=== PATIENT | male | born 1970 | race Asian ===

== ENCOUNTER 2020-01-24 14:39 | Inpatient (IN) | payer MEDICAID ==
[~2020-01-24] VITALS: Ht 157.5 cm; Wt 53.5 kg
[2020-01-24] MEDS ORDERED: Omnipaque-300 100ml vial INJ PRN (15:00)
--- NOTE | 2020-01-24 15:03 | Emergency Room Report ---
History of Present Illness General Chief Complaint: Chest Pain Source: Patient Present Illness HPI 49-year-old male presents with epigastric/chest pain burning in nature has been constant since yesterday, no aggravating relieving factors severity is moderate patient attributes it to his longstanding alcohol abuse, no dyspnea on exertion no shortness of breath patient presents from assisted living for continued chest pain, patient denies any family history of ACS patient presents for eval Allergies: Coded Allergies: No Known Allergies (Unverified , 01/24/20) COVID-19 Screening Contact w/high risk pt: No Experienced COVID-19 symptoms?: No COVID-19 Testing performed DIRECTOR DIGITAL ANALYTICS: No Patient History Past Medical History: see triage record Social History: Reports: alcohol use - History of alcohol abuse Reviewed Nursing Documentation: PMH: Agreed; PSxH: Agreed Nursing Documentation-PMH Hx Hypertension: Yes Review of Systems All Other Systems: negative except mentioned in HPI Physical Exam Vital Signs Date Time Temp Pulse Resp B/P (MAP) Pulse Ox O2 Delivery O2 Flow Rate FiO2 01/24/20 14:37 97.9 110 20 136/96 (109) 98 Room Air Sp02 EP Interpretation: reviewed, normal General Appearance: well appearing, no apparent distress, alert Head: normocephalic, atraumatic Eyes: bilateral eye PERRL, bilateral eye EOMI ENT: uvula midline, moist mucus membranes Neck: supple, thyroid normal, supple/symm/no masses Respiratory: lungs clear, no respiratory distress, no retraction, no accessory muscle use Cardiovascular #1: normal peripheral pulses, regular rate, rhythm, no edema, no gallop, no murmur Gastrointestinal: non tender, soft, no guarding, no rebound Musculoskeletal: normal inspection Neurologic: alert, oriented x3 Psychiatric: mood/affect normal Skin: no rash, warm/dry Medical Decision Making Diagnostic Impression: Primary Impression: Chest pain Qualified Codes: R07.9 - Chest pain, unspecified ER Course 49-year-old male presents with epigastric pain, chest pain differential diagnosis includes ACS, pancreatitis, alcohol gastritis Patient given aspirin 325 mg plan for admission CT scan shows no acute intra-abdominal process possible enteritis Patient admitted Dr. Guerra Laboratory Tests Test 01/24/20 15:00 01/24/20 16:35 White Blood Count 7.0 K/UL (4.8-10.8) Red Blood Count 4.74 M/UL (4.70-6.10) Hemoglobin 14.1 G/DL (14.2-18.0) L Hematocrit 43.4 % (42.0-52.0) Mean Corpuscular Volume 92 FL (80-99) Mean Corpuscular Hemoglobin 29.7 PG (27.0-31.0) Mean Corpuscular Hemoglobin Concent 32.4 G/DL (32.0-36.0) Red Cell Distribution Width 14.4 % (11.6-14.8) Platelet Count 124 K/UL (150-450) L Mean Platelet Volume 7.1 FL (6.5-10.1) Neutrophils (%) (Auto) 75.0 % (45.0-75.0) Lymphocytes (%) (Auto) 11.2 % (20.0-45.0) L Monocytes (%) (Auto) 11.2 % (1.0-10.0) H Eosinophils (%) (Auto) 0.8 % (0.0-3.0) Basophils (%) (Auto) 1.9 % (0.0-2.0) Sodium Level 139 MMOL/L (136-145) Potassium Level 3.6 MMOL/L (3.5-5.1) Chloride Level 95 MMOL/L (98-107) L Carbon Dioxide Level 27 MMOL/L (21-32) Anion Gap 17 mmol/L (5-15) H Blood Urea Nitrogen 12 mg/dL (7-18) Creatinine 0.9 MG/DL (0.55-1.30) Estimated Glomerular Filtration Rate > 60 mL/min (>60) Glucose Level 104 MG/DL (74-106) Calcium Level 9.2 MG/DL (8.5-10.1) Total Bilirubin 0.8 MG/DL (0.2-1.0) Aspartate Amino Transferase (AST) 214 U/L (15-37) H Alanine Aminotransferase (ALT) 98 U/L (12-78) H Alkaline Phosphatase 80 U/L (46-116) Troponin I 0.000 ng/mL (0.000-0.056) Total Protein 9.6 G/DL (6.4-8.2) H Albumin 4.8 G/DL (3.4-5.0) Globulin 4.8 g/dL Albumin/Globulin Ratio 1.0 (1.0-2.7) Lipase 125 U/L (73-393) Microbiology Date/Time Source Procedure Growth Status 01/24/20 15:00 Nasopharynx SARS-CoV-2 RdRp Gene Assay - Final Complete EKG Diagnostic Results EKG Time: 15:03 EP Interpretation: NSR, rate 81, QTc 462, no acute ST elevations, normal axis Rhythm Strip Diag. Results Rhythm Strip Time: 15:37 EP Interpretation: yes Rate: 80 Rhythm: NSR, no PVC's, no ectopy Chest X-Ray Diagnostic Results Chest X-Ray Diagnostic Results : Chest X-Ray Ordered: Yes # of Views/Limited/Complete: 1 View Indication: Chest Pain EP Interpretation: Yes Interpretation: no consolidation, no effusion, no pneumothorax, no acute cardiopulmonary disease Impression: No acute disease Electronically Signed by: Edy Hardy MD CT/MRI/US Diagnostic Results CT/MRI/US Diagnostic Results : Impression Procedure: CT Abdomen Pelvis w/Contrast EXAM: CT Abdomen and Pelvis With Intravenous Contrast CLINICAL HISTORY: PAIN TECHNIQUE: Axial computed tomography images of the abdomen and pelvis with intravenous contrast. CTDI is 3 mGy and DLP is 164 mGy-cm. One or more of the following dose reduction techniques were used: automated exposure control, adjustment of the mA and/or kV according to patient size, use of iterative reconstruction technique. COMPARISON: No relevant prior studies available. FINDINGS: Limitations: Limited due to motion. Lung bases: Unremarkable. ABDOMEN: Liver: Hepatic steatosis. Gallbladder and bile ducts: Cholelithiasis. No pericholecystic stranding. Pancreas: Unremarkable. Spleen: Unremarkable. Adrenals: Unremarkable. Kidneys and ureters: Unremarkable. No hydronephrosis. Stomach and bowel: Mildly thickened bowel which may be underdistention versus enteritis/colitis. No bowel obstruction or diverticulitis. PELVIS: Appendix: No findings to suggest acute appendicitis. Bladder: Unremarkable. Reproductive: Unremarkable as visualized. ABDOMEN and PELVIS: Intraperitoneal space: No free air. Bones/joints: No acute fracture. Soft tissues: Unremarkable. Vasculature: Unremarkable. Lymph nodes: Unremarkable. IMPRESSION: 1. Mildly thickened bowel which may be underdistention versus enteritis/colitis. No bowel obstruction or diverticulitis. 2. Cholelithiasis. No pericholecystic stranding. Dictated By: Leo Brito MD Electronically Signed By: Leo Brito MD Signed Date/Time 01/24/20 5970 CC: Edy Hardy MD Last Vital Signs Date Time Temp Pulse Resp B/P (MAP) Pulse Ox O2 Delivery O2 Flow Rate FiO2 01/24/20 14:46 98.8 110 20 134/86 (102) 98 Room Air Disposition: ADMITTED INPATIENT Condition: Stable Edy Hardy MD Jan 24, 2020 15:03
--- NOTE | 2020-01-24 15:04 | NUR ---
ED Nurse Note: Pt came from board and care for CP since 3 hours ago L chest. Pt denies nausea and V, dizziness. Pt is alert and ox4, ambulatory. Pt set up on monitor. Blood labs sent. JAMIL has seen patient. IV present from ambulance.
[2020-01-24 15:07] VITALS: BP 132/83
--- NOTE | 2020-01-24 15:15 | NUR ---
ED Nurse Note: Cyracom used with Dr Hardy, RN and patient. Dr Hardy given phone, hung up before RN was able to obtain cryacom user ID.
--- NOTE | 2020-01-24 15:45 | NUR ---
ED Nurse Note: ERMD notified that pt vomited 30 cc and HR went up to 125.
--- NOTE | 2020-01-24 16:03 | Diagnostic Imaging Report ---
Indication: Reason For Exam: CP Technique: Single AP view of the chest. Comparison: None. Findings: The cardiomediastinal silhouette is within normal limits. No airspace consolidation. No pneumothorax or pleural effusion. No acute osseous abnormality. IMPRESSION: No evidence of acute cardiopulmonary process
[2020-01-24 16:24] LABS: BASOPHILS % (AUTO) 1.9 % (0.0-2.0); EOSINOPHILS % (AUTO) 0.8 % (0.0-3.0); HEMATOCRIT 43.4 % (42.0-52.0); HEMOGLOBIN 14.1 G/DL (14.2-18.0); LYMPHOCYTES % (AUTO) 11.2 % (20.0-45.0); MEAN CORPUSCULAR VOLUME 92 FL (80-99); MONOCYTES % (AUTO) 11.2 % (1.0-10.0); PLATELET COUNT 124 K/UL (150-450); RED BLOOD COUNT 4.74 M/UL (4.70-6.10); RED CELL DISTRIBUTION WIDTH 14.4 % (11.6-14.8)
[2020-01-24 17:08] LABS: ANION GAP 17 mmol/L (5-15); BLOOD UREA NITROGEN 12 mg/dL (7-18); CALCIUM 9.2 MG/DL (8.5-10.1); CARBON DIOXIDE 27 MMOL/L (21-32); CHLORIDE 95 MMOL/L (98-107); CREATININE 0.9 MG/DL (0.55-1.30); POTASSIUM 3.6 MMOL/L (3.5-5.1); SODIUM 139 MMOL/L (136-145)
[2020-01-24 17:12] LABS: ALANINE AMINOTRANSFERASE 98 U/L (12-78); ALBUMIN 4.8 G/DL (3.4-5.0); ALKALINE PHOSPHATASE 80 U/L (46-116); ASPARTATE AMINO TRANSFERASE 214 U/L (15-37); BILIRUBIN,TOTAL 0.8 MG/DL (0.2-1.0)
[2020-01-24 17:13] VITALS: BP 128/80
--- NOTE | 2020-01-24 17:57 | Diagnostic Imaging Report ---
EXAM: CT Abdomen and Pelvis With Intravenous Contrast CLINICAL HISTORY: PAIN TECHNIQUE: Axial computed tomography images of the abdomen and pelvis with intravenous contrast. CTDI is 3 mGy and DLP is 164 mGy-cm. One or more of the following dose reduction techniques were used: automated exposure control, adjustment of the mA and/or kV according to patient size, use of iterative reconstruction technique. COMPARISON: No relevant prior studies available. FINDINGS: Limitations: Limited due to motion. Lung bases: Unremarkable. ABDOMEN: Liver: Hepatic steatosis. Gallbladder and bile ducts: Cholelithiasis. No pericholecystic stranding. Pancreas: Unremarkable. Spleen: Unremarkable. Adrenals: Unremarkable. Kidneys and ureters: Unremarkable. No hydronephrosis. Stomach and bowel: Mildly thickened bowel which may be underdistention versus enteritis/colitis. No bowel obstruction or diverticulitis. PELVIS: Appendix: No findings to suggest acute appendicitis. Bladder: Unremarkable. Reproductive: Unremarkable as visualized. ABDOMEN and PELVIS: Intraperitoneal space: No free air. Bones/joints: No acute fracture. Soft tissues: Unremarkable. Vasculature: Unremarkable. Lymph nodes: Unremarkable. IMPRESSION: 1. Mildly thickened bowel which may be underdistention versus enteritis/colitis. No bowel obstruction or diverticulitis. 2. Cholelithiasis. No pericholecystic stranding.
--- NOTE | 2020-01-24 18:11 | NUR ---
ED Nurse Note: Report given to Keshia BURGER.
--- NOTE | 2020-01-24 18:30 | NUR ---
ED Nurse Note: pt taken up to room 212 accompanied by 2 RN via gursae with classroom monitor in stable condition. Belonging list signed off.
--- NOTE | 2020-01-24 18:38 | NUR ---
NURSE NOTES: pt admitted to unit from ED, in stable condition. V/s bp142/100, HR68, T100.9, o2 in room air 96 R18, no pain at this moment. pt on hoist mechanic no signs of cardiac or respiratory distress. Call light at bedside. Bed locked and in lowest position. Urinal at bedside. Pt skin is intact.
--- NOTE | 2020-01-24 19:05 | NUR ---
HAND-OFF: Report given to Ryan/RN, endorsed plan of care, and latest vital signs pt is running a fever 100.9 and BP142/100. IV site patent.
--- NOTE | 2020-01-24 19:25 | NUR ---
NURSE NOTES: Patient received from Keshia BURGER. Patient in stable condition. Alert and oriented x4. On room air saturating well. Iv site patent and intact on Left hand 20G saline locked. Primary MD notified of temp 100.9 and for admission orders. Awaiting call back. Fall precautions in place. Patient wearing yellow gown and yellow socks. Call light within reach. Bed in lowest position and locked. Will continue plan of care.
--- NOTE | 2020-01-24 19:44 | NUR ---
NURSE NOTES: Dr. Banks called back and referred Dr. Banks for admission orders. Dr. Banks notified and called. Awaiting call back.
[2020-01-24 20:00] VITALS: BP 140/97
--- NOTE | 2020-01-24 20:36 | NUR ---
Dr. Banks called back and gave orders. Orders were verified and carried out and acknowledged.
[2020-01-24] MEDS ORDERED: Albuterol/Ipratropium 3ml neb HHN PRN (20:45)
[2020-01-24] MEDS ORDERED: Enalaprilat 2.5mg/2ml Inj IV PRN (20:45)
[2020-01-24] MEDS ORDERED: Nitroglycerin Subl 0.4mg tab SL PRN (20:45)
[2020-01-24] MEDS ORDERED: dilTIAZem HCl 25mg/5ml Inj IV PRN (20:45)
[2020-01-24] MEDS ORDERED: Miralax 17gm pkt ORAL PRN (20:45)
[2020-01-24] MEDS: Heparin 5000 units/ml inj SUBQ SCH (20:48)
[2020-01-25] VITALS: BP 141/98
[2020-01-25 04:00] VITALS: BP 133/94
[2020-01-25 06:37] LABS: BASOPHILS % (AUTO) 1.5 % (0.0-2.0); EOSINOPHILS % (AUTO) 9.1 % (0.0-3.0); HEMATOCRIT 45.3 % (42.0-52.0); HEMOGLOBIN 14.8 G/DL (14.2-18.0); LYMPHOCYTES % (AUTO) 15.9 % (20.0-45.0); MEAN CORPUSCULAR VOLUME 92 FL (80-99); MONOCYTES % (AUTO) 14.5 % (1.0-10.0); NEUTROPHILS % (AUTO) 58.9 % (45.0-75.0); PLATELET COUNT 118 K/UL (150-450); RED BLOOD COUNT 4.95 M/UL (4.70-6.10); RED CELL DISTRIBUTION WIDTH 13.4 % (11.6-14.8); WHITE BLOOD COUNT 5.8 K/UL (4.8-10.8)
--- NOTE | 2020-01-25 07:14 | NUR ---
HAND-OFF: Report given to Tara BURGER. Patient in stable condition. Endorsed plan of care.
--- NOTE | 2020-01-25 07:24 | NUR ---
NURSE NOTES: Received pt from JENNYFER Davis. Pt is ambulatory. AO x 4. No c/o of pain/distress at this moment. IV on L hand 20g noted, with SL. Side rails x 2. Bed in the lowest and locked. Call light within reach. Will continue to monitor
[2020-01-25 07:30] LABS: CHOLESTEROL 201 MG/DL (< 200); HDL CHOLESTEROL 121 MG/DL (40-60); TRIGLYCERIDES 56 MG/DL (30-150)
[2020-01-25] MEDS: Heparin 5000 units/ml inj SUBQ SCH (07:50)
[2020-01-25 08:00] VITALS: BP 112/86
[2020-01-25] MEDS ORDERED: Aspirin Baby 81mg ORAL SCH (09:00)
--- NOTE | 2020-01-25 09:16 | NUR ---
CASE MANAGEMENT:REVIEW 49 YR OLD MALE BIBA FROM [facility] CC: CHEST PAIN. EMESIS IN ER SI: CHEST PAIN 97.9 125 20 136/96 98% ON RA AST+214 TROPONIN(-) X2 IS:ASA PO IV ZOFRAN CT ABD/PELVIS COVID SWAB CHEST XRAY : TO TELEMETRY DCP; FROM [facility] IS: ASA PO QD HEPARIN SQ Q12
--- NOTE | 2020-01-25 09:43 | NUR ---
INSURANCE CLINICALS FAXED TO [facility] F: [phone] Addendum: 01/25/20 at 1044 by HARVINDER HAWKINS LVN LVN REF # [id number]
--- NOTE | 2020-01-25 11:20 | NUR ---
FLOOR COVERING PRINTER ASSISTANT NOTE SW met w/ pt to evaluate home safety. Pt is Japanese and speaks Swedish. The Swedish diplomatic interpreter Anna #[id number] assisted w/ interpretation. Pt presents as A&O 3-4x and pleasant. Pt reports he has been staying at [facility] [address] [place] [address] for 2 months. Pt has hx of alcohol abuse. PT reports having hx of mental health issue. Pt did not share diagnosis, stating that "I had a problem but it is all gone. I am good now" SW observed pt walking w/o DMEs. Pt reports he is ambulatory and independent w/ ADLs and IADLs. Pt plans to return to [facility] upon DC. Pt did not share any concern/needs. This SW believes pt may be safe to return to his current facility. Emergency contact listed: Keyanna Villanueva (mother) [phone] [employer] Childcare Attendant [phone] ( Per pt, current CM is Chuck Rodrigez)
[2020-01-25 12:00] VITALS: BP 117/81
--- NOTE | 2020-01-25 13:25 | History and Physical ---
History of Present Illness General Date patient seen: Jan 25, 2020 Reason for Hospitalization: Chest Pain Present Illness HPI 49-year-old male with hx of HTN, ETOH abuseand psychosis, presented from an assisted living with epigastric/chest pain burning in nature has been constant since yesterday, no dyspnea on exertion no shortness of breath patient. Allergies: Coded Allergies: No Known Allergies (Unverified , 01/24/20) COVID-19 Screening Contact w/high risk pt: No Experienced COVID-19 symptoms?: No Medication History Unable to Obtain Active Prescriptions or Reported Meds Patient History Healthcare decision maker Resuscitation status Advanced Directive on File Past Medical/Surgical History Past Medical/Surgical History: (1) ETOH abuse (2) History of hypertension (3) Psychiatric disorder Review of Systems All Other Systems: negative except mentioned in HPI Physical Exam General Appearance: thin Lines, tubes and drains: peripheral HEENT: atraumatic, anicteric, mucous membranes moist, PERRL Neck: non-tender, supple, normal inspection Respiratory/Chest: chest wall non-tender, lungs clear, normal breath sounds, no respiratory distress, no accessory muscle use, respiratory distress Cardiovascular/Chest: regular rhythm, regularly irregular Abdomen: normal bowel sounds, non tender, soft, no organomegaly, no mass Extremities: non-tender Skin Exam: normal pigmentation, warm/dry Last 24 Hour Vital Signs Date Time Temp Pulse Resp B/P (MAP) Pulse Ox O2 Delivery O2 Flow Rate FiO2 01/25/20 12:00 99.5 70 21 117/81 (93) 98 01/25/20 12:00 80 01/25/20 08:15 Room Air 01/25/20 08:00 98.1 94 18 112/86 (95) 97 01/25/20 08:00 79 01/25/20 06:50 89 18 97 Room Air 21 01/25/20 04:00 63 01/25/20 04:00 98.2 66 18 133/94 (107) 98 01/25/20 00:00 69 01/25/20 00:00 96.8 70 18 141/98 (112) 97 01/24/20 21:00 Room Air 01/24/20 20:55 Room Air 01/24/20 20:00 98.2 69 18 140/97 (111) 98 01/24/20 20:00 66 01/24/20 19:30 66 01/24/20 18:30 98.6 101 18 128/80 98 Room Air 96 01/24/20 17:13 98.8 106 17 128/80 99 Room Air 01/24/20 15:07 98.8 105 19 132/83 98 Room Air 01/24/20 15:07 105 19 Room Air 96 01/24/20 14:46 98.8 110 20 134/86 (102) 98 Room Air 01/24/20 14:37 97.9 110 20 136/96 (109) 98 Room Air Intake and Output 01/24/20 01/25/20 19:00 07:00 Intake Total 0 ml 240 ml Output Total 300 ml Balance 0 ml -60 ml Intake Oral 0 ml 240 ml Output Urine Total 300 ml Laboratory Tests Test 01/24/20 15:00 01/24/20 16:35 01/25/20 05:18 White Blood Count 7.0 K/UL (4.8-10.8) 5.8 K/UL (4.8-10.8) Red Blood Count 4.74 M/UL (4.70-6.10) 4.95 M/UL (4.70-6.10) Hemoglobin 14.1 G/DL (14.2-18.0) L 14.8 G/DL (14.2-18.0) Hematocrit 43.4 % (42.0-52.0) 45.3 % (42.0-52.0) Mean Corpuscular Volume 92 FL (80-99) 92 FL (80-99) Mean Corpuscular Hemoglobin 29.7 PG (27.0-31.0) 29.9 PG (27.0-31.0) Mean Corpuscular Hemoglobin Concent 32.4 G/DL (32.0-36.0) 32.6 G/DL (32.0-36.0) Red Cell Distribution Width 14.4 % (11.6-14.8) 13.4 % (11.6-14.8) Platelet Count 124 K/UL (150-450) L 118 K/UL (150-450) L Mean Platelet Volume 7.1 FL (6.5-10.1) 6.8 FL (6.5-10.1) Neutrophils (%) (Auto) 75.0 % (45.0-75.0) 58.9 % (45.0-75.0) Lymphocytes (%) (Auto) 11.2 % (20.0-45.0) L 15.9 % (20.0-45.0) L Monocytes (%) (Auto) 11.2 % (1.0-10.0) H 14.5 % (1.0-10.0) H Eosinophils (%) (Auto) 0.8 % (0.0-3.0) 9.1 % (0.0-3.0) H Basophils (%) (Auto) 1.9 % (0.0-2.0) 1.5 % (0.0-2.0) Sodium Level 139 MMOL/L (136-145) Potassium Level 3.6 MMOL/L (3.5-5.1) Chloride Level 95 MMOL/L (98-107) L Carbon Dioxide Level 27 MMOL/L (21-32) Anion Gap 17 mmol/L (5-15) H Blood Urea Nitrogen 12 mg/dL (7-18) Creatinine 0.9 MG/DL (0.55-1.30) Estimat Glomerular Filtration Rate > 60 mL/min (>60) Glucose Level 104 MG/DL (74-106) Calcium Level 9.2 MG/DL (8.5-10.1) Total Bilirubin 0.8 MG/DL (0.2-1.0) Aspartate Amino Transf (AST/SGOT) 214 U/L (15-37) H Alanine Aminotransferase (ALT/SGPT) 98 U/L (12-78) H Alkaline Phosphatase 80 U/L (46-116) Troponin I 0.000 ng/mL (0.000-0.056) 0.000 ng/mL (0.000-0.056) Total Protein 9.6 G/DL (6.4-8.2) H Albumin 4.8 G/DL (3.4-5.0) Globulin 4.8 g/dL Albumin/Globulin Ratio 1.0 (1.0-2.7) Lipase 125 U/L (73-393) Prothrombin Time 11.4 SEC (9.30-11.50) Prothromb Time International Ratio 1.0 (0.9-1.1) Activated Partial Thromboplast Time 26 SEC (23-33) C-Reactive Protein, Quantitative < 0.4 mg/dL (0.00-0.90) Triglycerides Level 56 MG/DL (30-150) Cholesterol Level 201 MG/DL (< 200) H LDL Cholesterol 60 mg/dL (<100) HDL Cholesterol 121 MG/DL (40-60) H Cholesterol/HDL Ratio 1.7 (3.3-4.4) L Thyroid Stimulating Hormone (TSH) 0.807 uiU/mL (0.358-3.740) Microbiology Date/Time Source Procedure Growth Status 01/24/20 15:00 Nasopharynx SARS-CoV-2 RdRp Gene Assay - Final Complete 01/24/20 22:00 Rectum Received Height (Feet): 5 Height (Inches): 2.00 Weight (Pounds): 118 Medications Current Medications Medications (Trade) Dose Ordered Sig/Lucrecia Route PRN Reason Start Time Stop Time Status Last Admin Dose Admin Acetaminophen (Tylenol) 650 mg Q4H PRN ORAL FEVER 01/24/20 20:45 02/23/20 20:44 Albuterol/ Ipratropium (Albuterol/ Ipratropium) 3 ml Q4H PRN HHN Shortness of Breath 01/24/20 20:45 01/29/20 20:44 Aspirin (ASA) 162 mg DAILY ORAL 01/25/20 09:00 03/10/20 08:59 01/25/20 09:28 Diltiazem HCl (Cardizem) 10 mg Q1H PRN IV heart rate more than 120, 01/24/20 20:45 02/23/20 20:44 Enalaprilat (Vasotec) 2.5 mg Q6H PRN IV sbp more than 160 01/24/20 20:45 02/23/20 20:44 Heparin Sodium (Porcine) (Heparin 5000 units/ml) 5,000 units EVERY 12 HOURS SUBQ 01/24/20 21:00 03/09/20 20:59 01/24/20 20:48 Iohexol (OMNIPAQUE-300 100ml) 100 ml NOW PRN INJ Radiology Procedure 01/24/20 15:00 01/26/20 14:57 Nitroglycerin (Ntg) 0.4 mg Q5M PRN SL Prn Chest Pain 01/24/20 20:45 02/23/20 20:44 Ondansetron HCl (Zofran) 4 mg Q6H PRN IVP Nausea & Vomiting 01/24/20 20:45 02/23/20 20:44 Polyethylene Glycol (Miralax) 17 gm DAILYPRN PRN ORAL Constipation 01/24/20 20:45 02/23/20 20:44 Temazepam (Restoril) 15 mg HSPRN PRN ORAL Insomnia 01/24/20 20:45 01/31/20 20:44 Assessment/Plan Problem List: (1) History of hypertension ICD Codes: Z86.79 - Personal history of other diseases of the circulatory system SNOMED: 520979675 (2) Psychiatric disorder ICD Codes: F99 - Mental disorder, not otherwise specified SNOMED: 82570679 (3) ETOH abuse ICD Codes: F10.10 - Alcohol abuse, uncomplicated SNOMED: 50692048 Assessment/Plan: troponin negative x 3 echo reviewed symptomatic treatment will benefit from H2 blockers and carafate on Banana bag. Antonio Banks MD Jan 25, 2020 13:25
[2020-01-25] MEDS ORDERED: chlordiazePOXIDE 25mg Cap ORAL PRN (13:30)
[2020-01-25] MEDS ORDERED: CARAFATE1 GM/10 M1 ORAL (13:39)
[2020-01-25] MEDS ORDERED: FAMOTIDINE20 MG ORAL (13:39)
[2020-01-25] MEDS ORDERED: Vitamin B12 1000mcg/ml Inj IM SCH (14:00)
[2020-01-25] MEDS ORDERED: Thiamine HCl 100 MG in D5W 55 ML IVPB SCH (15:00)
--- NOTE | 2020-01-25 16:38 | NUR ---
NURSE NOTES: Patient was discharged to boarding care via taxi in stable condition. Escorted patient to entrance. ID, heart monitor and IV was removed. No s/s of infection on the removal site. Notified [employer] and [facility] care for discharge. Belongings were accounted and given to patient. Discharge instructions and prescribed medications were given to patient.
[2020-01-25] MEDS ORDERED: Sucralfate 1gm tab ORAL SCH (18:00)
--- NOTE | 2020-01-25 20:20 | History & Physical ---
History and Physical History & Physicial Uday Guerra MD Jan 25, 2020 20:20
--- NOTE | 2020-01-25 21:30 | History and Physical Report ---
DATE OF ADMISSION: 01/24/2020 CHIEF COMPLAINT: Chest pain. HISTORY OF PRESENT ILLNESS: This is a 49-year-old gentleman with past medical history significant for alcoholism, psychiatric disorder, hypertension who presented to the emergency department complaining of epigastric/chest discomfort. The patient feels burning sensation nature, started yesterday, no aggravating or relieving factor. No nausea or vomiting. The patient has longstanding alcohol abuse. Denies any dysuria, frequency, hematuria. The patient is residing at the assisted living and was continuously having chest discomfort and subsequently was advised to come to the emergency room. Shortly after initial evaluation in the emergency department, the patient was admitted to the hospital with chest pain, possible acute coronary syndrome. PAST MEDICAL HISTORY/PAST SURGICAL HISTORY: As above history of alcoholism, hypertension, and psychiatric disorder. MEDICATIONS: At home, please refer to medication reconciliation. ALLERGIES: No known drug allergies. SOCIAL HISTORY: The patient history of alcohol abuse. Denies any substance abuse. FAMILY HISTORY: Noncontributory. REVIEW OF SYSTEMS: Mostly as above. PHYSICAL EXAMINATION: VITAL SIGNS: On admission, temperature 97.9, pulse of 110, respirations 20, and blood pressure 136/96. GENERAL: The patient awake and responsive, no acute distress. HEAD AND NECK: Pupils are equal and reactive to light. Extraocular movements intact. Neck was supple. No JVD. LUNGS: Good air entry. No wheezing or rales. HEART: S1, S2. Regular rhythm. No murmur or gallops. ABDOMEN: Soft, nondistended, nontender. Positive bowel sounds. EXTREMITIES: No cyanosis, clubbing, or edema NEUROLOGIC: Cranial nerves II through XII grossly normal. Motor is 5/5 in all extremities. Gait is intact. RECTAL/GENITOURINARY: Refused and deferred. PSYCHIATRIC: Mood and affect is intact. LABORATORY AND DIAGNOSTIC DATA: Laboratory on admission PT of 11, INR 1.0, PTT of 26. Sodium 132, potassium 3.6, chloride 95, bicarbonate 27, BUN 12, creatinine 0.9, GFR greater than 60. AST 214, ALT of 98. First and second troponin 0.00. CRP less than 0.4. Total protein 9.6. Albumin is 4.8. Cholesterol is 201. Lipase is 215. TSH is 0.87. WBC of 7.0, hemoglobin of 14, hematocrit 43, and platelets is 124. The patient had rapid COVID test negative. Chest x-ray no acute cardiopulmonary disease. CT scan and abdomen pelvic mild thickening of bowels which may be under distention versus enteric colitis. No bowel obstruction or diverticulitis, cholelithiasis, no pericolonic stranding. ASSESSMENT: 1. Atypical chest pain. 2. Alcoholism. 3. Hypertension. PLAN: Admit the patient to monitored unit. Serial cardiac enzymes been negative. The patient's status improved, able to tolerate oral intake. The patient denies any pain, nausea or vomiting at this time. The patient's status improved, wants to go home. Consider discharge home today to follow up with the primary doctor within one week. I advised the patient if the pain comes back, please return back to the hospital. The patient was noted to have thrombocytopenia most likely secondary to alcohol abuse. Uday Guerra M.D. DR: Antony JOB#: [id number] CC:
--- NOTE | 2020-01-27 10:10 | Discharge Summary ---
Discharge Summary Discharge Summary _ DATE OF ADMISSION: 01/24/2020 DATE OF DISCHARGE: 01/25/2020 ADMITTING MD: Dr. Uday Guerra DISCHARGED BY: Dr. Antonio Banks CONSULTANTS: Dr. Antonio Banks BRIEF HOSPITAL COURSE: The patient is a 49-year-old gentleman with past medical history significant for alcoholism, psychiatric disorder, hypertension, who presented to the emergency department complaining of epigastric/chest discomfort. The patient felt burning sensation that started the day prior. There was no aggravating or relieving factors. No nausea or vomiting. Patient has longstanding history of alcohol abuse. He denied any dysuria, frequency or hematuria. The patient is residing at the assisted living facility and was continuously having chest discomfort. He was then advised to come to the emergency room. Upon evaluation at ED, blood work did not show any leukocytosis. Hemoglobin and hematocrit were stable. Platelet count was low at 124. Electrolytes were normal. LFTs elevated. Troponin was negative. Lipase normal. Rapid COVID testing was negative. Chest x-ray did not show any acute cardiopulmonary disease. CT of the abdomen and pelvis with contrast showed mildly thickened bowel which may be under distention versus enteritis/colitis. No bowel obstruction or diverticulitis. He was then admitted to the hospital for evaluation of chest pain, possible acute coronary syndrome. The patient was then admitted to monitored unit. Cardiac enzymes were monitored. He was given symptomatic treatment with H2 blockers and Carafate. He was given banana bag. Patient status improved. Cardiac enzymes negative x2. He was able to tolerate oral intake. Patient denied any pain, nausea or vomiting. Patient wants to go home. Patient was cleared for discharge to follow-up with primary doctor in a week. Advised if patient's pain comes back, to present back to the hospital. FINAL DIAGNOSES: Atypical chest pain, possible acid reflux Alcoholism Hypertension Thrombocytopenia likely secondary to alcohol abuse DISPOSITION: Patient was discharged back to assisted living DISCHARGE MEDICATIONS: Refer to Discharge Medication List. DISCHARGE INSTRUCTIONS: Follow-up with PCP in a week. I have been assigned to complete a discharge summary on this account, I was not involved with the patient's management.--SHARRON Jacques Jacqueline Robles NP Jan 27, 2020 10:10
--- NOTE | 2020-01-28 13:06 | NUR ---
*_* AUTHORIZATION *_* RECEIVED FAX AUTHORIZATION : [employer] INPATIENT START DATE 01/24/2020 INPATIENT END DATE 01/29/2020 AUTHORIZATION TYPE LOC TELE AUTHORIZATION NUMBER [id number] AND [place] [id number] HARD COPY FAXED TO ADMITTING AND BUSINESS OFFICE
== END 2020-01-25 16:38 | disposition home or self-care (01) | DRG 243 ==
LOC: EDBD 14:39 → EMR 14:55 → 2E 15:46 → EDBEDREQ 18:17
DX: K21.9 Gastro-esophageal reflux disease without esophagitis (principal); R07.89 Other chest pain; F10.20 Alcohol dependence, uncomplicated; I10 Essential (primary) hypertension; D69.59 Other secondary thrombocytopenia; F99 Mental disorder, not otherwise specified
CPT/HCPCS: 36415; 71045; 74177; 80053; 80061; 83690; 84443; 84484; 85025; 85610; 85730; 86140; 87081; 93005; 93306; 94664; 96374; 99285; J2405; U0002

== ENCOUNTER 2020-01-25 20:00 | Emergency (ER) | payer MEDICAID ==
[~2020-01-25] VITALS: Ht 162.6 cm; Wt 59.0 kg
[~2020-01-25 20:00] MED LIST: CARAFATE1 GM/10 M1 ORAL; FAMOTIDINE20 MG ORAL
--- NOTE | 2020-01-25 20:08 | Emergency Room Report ---
History of Present Illness General Chief Complaint: Seizure Source: Patient, EMS Present Illness HPI Patient is a 49-year-old male past medical history of seizure disorder who was brought in from his boarding care by EMS status post seizure. Patient had a witnessed generalized tonic-clonic seizure at his facility. Patient had some oral trauma. Patient was postictal upon EMS arrival but is now awake and alert. He denies any headache, blurry vision, chest pain or shortness of breath. Patient denies any abdominal pain, nausea or vomiting. Patient was seen in our emergency room yesterday for chest pain and was admitted and discharged earlier today. Allergies: Coded Allergies: No Known Allergies (Unverified , 01/24/20) COVID-19 Screening Contact w/high risk pt: No Experienced COVID-19 symptoms?: No COVID-19 Testing performed SPUDDER: No Patient History Reviewed Nursing Documentation: PMH: Agreed; PSxH: Agreed Nursing Documentation-PMH Hx Cardiac Problems: Yes Hx Hypertension: Yes Hx Cancer: No Hx Gastrointestinal Problems: No History Of Psychiatric Problem: Yes - bipolar, alcohol abuse Hx Neurological Problems: No Hx Seizures: Yes Review of Systems All Other Systems: negative except mentioned in HPI Physical Exam Vital Signs Date Time Temp Pulse Resp B/P (MAP) Pulse Ox O2 Delivery O2 Flow Rate FiO2 01/25/20 19:52 98.6 112 16 150/98 (115) 98 Room Air Sp02 EP Interpretation: reviewed, normal General Appearance: no apparent distress, alert, GCS 15, non-toxic Head: normocephalic, atraumatic Eyes: bilateral eye normal inspection, bilateral eye PERRL ENT: hearing grossly normal, normal pharynx, no angioedema, normal voice, other - Scant blood around his lips Neck: full range of motion, supple/symm/no masses Respiratory: chest non-tender, lungs clear, normal breath sounds, speaking full sentences Cardiovascular #1: tachycardia Gastrointestinal: non tender, soft, no guarding, no rebound Rectal: deferred Musculoskeletal: normal range of motion, no calf tenderness 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 Patient is now awake alert and oriented. He is refusing any care in the emergency room. The patient is of adult age and has sound mind with no evidence of altered mental status suggesting metabolic or infections etiologies. I explained in layman's terms the risk of leaving against medical advise including and significant comorbidity. The patient was given reasonable options. This was explained in front of the patient and the bedside nurse JENNYFER Fuentes. The AMA for was signed and witnessed by a nurse and the patient. EKG Diagnostic Results EKG Time: 20:00 EP Interpretation: Sujata West MD Rate: tachycardiac - 107 bpm Rhythm: other - Sinus tachycardia ST Segments: no acute changes ASA given to the pt in ED: No Rhythm Strip Diag. Results Rhythm Strip Time: 20:07 EP Interpretation: yes - Sujata West MD Rate: 104 bpm Rhythm: no PVC's, no ectopy, other - Sinus tachycardia Last Vital Signs Date Time Temp Pulse Resp B/P (MAP) Pulse Ox O2 Delivery O2 Flow Rate FiO2 01/25/20 19:52 98.6 112 16 150/98 (115) 98 Room Air Disposition: AGAINST MEDICAL ADVICE Condition: Unknown Additional Instructions: The patient was provided with discharge instructions, notified to follow-up with a primary care doctor and or specialist in the next 24-48 hours, and to return to the ED if they have worsening of their symptoms. Please note that this report is being documented using [employer] technology. This can lead to erroneous entry secondary to incorrect interpretation by the dictating instrument. Sujata West M.D. Jan 25, 2020 20:08
[2020-01-25 20:10] VITALS: BP 150/98
[2020-01-25] MEDS ORDERED: levETIRAcetam 1,000mg/NS100ml 100 ML IVPB ONE (20:15)
[2020-01-25 20:25] VITALS: BP 150/98
--- NOTE | 2020-01-25 20:25 | NUR ---
ED Nurse Note: Recieved pt SENA from board in care where he resides for SZ activity, witnessed and tonic clonic, pt is awake, alert and oriented x 4, no trauma or other complaints, pt immediately stating he wants to leave and does not want to be here, pt was seen here yesterday for same reason and admitted and left AMA, pt stasting he wants to leave again, pt placed on cardiac monitoring, v/s stable, no respiratory distress or changes, pt is ambulatory, MD came and spoke with pt, pt has IV site which was removed, pt signed form, pt declined need for transportation or any needs, NAD noted during pt leaving, attempted to call board in care at [phone], all calls forwarded to answering machine.
--- NOTE | 2020-01-27 16:42 | NUR ---
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
== END 2020-01-25 20:25 | disposition left against medical advice (07) ==
LOC: EDBD 20:00 → EMR 20:17
DX: G40.909 Epilepsy, unspecified, not intractable, without status epilepticus (principal); I10 Essential (primary) hypertension; F31.9 Bipolar disorder, unspecified; R00.0 Tachycardia, unspecified
CPT/HCPCS: 96361; 96374; Z7502; 99284